=== PATIENT | female | born 1975 | race Caucasian/White ===

== ENCOUNTER 2017-06-14 18:18 | Emergency (ER) | payer OTHER ==
[2017-06-14 18:23] VITALS: BP 129/59; PULSE 82; TEMP 98.2; BMI 28.4
--- NOTE | 2017-06-14 18:23 | PDOC ---
Rapid Medical Evaluation Time Seen by Provider: 06/14/17 18:19 Medical Evaluation: Allergies Allergy/AdvReac Type Severity Reaction Status Date / Time No Known Allergies Allergy Verified 01/07/16 16:22 06/14/17 18:19 I have performed a brief in-person evaluation of this patient. The patient presents with a chief complaint of: R sided neck pain today. Has had similar pain in the past and dx w/ muscular pain by PMD. No recent trauma. Has not tried anything for pain today Pertinent physical exam findings:Unremarkable I have ordered the following: Nothing The patient will proceed to the ED for further evaluation.
--- NOTE | 2017-06-14 19:53 | PDOC ---
History of Present Illness - General History Source: Patient Exam Limitations: No Limitations - History of Present Illness Initial Comments: 06/14/17 20:34 The patient is a 42 year old female with no pertinent past medical history, presents to the emergency department with a complaint of neck pain since 3 this afternoon. The pain came on while the patient was at work. 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 The pain is more right sided on the neck. Patient reports she has had this pain in the past and was previously alleviated with the use of OTC medications. Patient has taken Tylenol today at approximately 4 pm with no relief. The pain is made worse when she lifts her hair. She reports in the past is has been associated with some right arm pain although today denies any radiation of pain. Denies any numbness or tingling in the upper extremities. Denies sensitivity to lights or sounds. 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 Denies fever or chills. Reports mild nausea, however denies vomiting. <Justice Hoover - Last Filed: 06/14/17 20:34> <Lenore Vazquez - Last Filed: 06/14/17 21:10> - General Chief Complaint: Pain Stated Complaint: NECK/BACK PAIN Time Seen by Provider: 06/14/17 18:19 Past History <Justice Hoover - Last Filed: 06/14/17 20:34> - Past Medical History Asthma: Yes COPD: No - Suicide/Smoking/Psychosocial Hx Smoking History: Never smoked Have you smoked in the past 12 months: No Information on smoking cessation initiated: No Hx Alcohol Use: No Drug/Substance Use Hx: No Substance Use Type: None <Lenore Vazquez - Last Filed: 06/14/17 21:10> - Past Medical History Allergies/Adverse Reactions: Allergies Allergy/AdvReac Type Severity Reaction Status Date / Time Penicillins Allergy Verified 06/14/17 18:19 Home Medications: Ambulatory Orders Acetaminophen [Tylenol] 325 mg PO ASDIR 06/14/17 Cyclobenzaprine HCl 7.5 mg PO HS #7 tablet 06/14/17 Ibuprofen 800 mg PO TID #30 tablet 06/14/17 Review of Systems - Review of Systems Able to Perform ROS?: Yes Comments:: 06/14/17 20:34 CONSTITUTIONAL: Absent: fever, no chills, no fatigue GI: Present: Nausea Absent: No vomiting, MUSKULOSKELETAL Present: Neck pain Absent: back pain, No arthralgia NEURO: Absent: Numbness, tingling Is the patient limited [place]serratian proficient: No <Justice Hoover - Last Filed: 06/14/17 20:34> *Physical Exam - Vital Signs Last Vital Signs Temp Pulse Resp BP Pulse Ox 98.2 F 82 18 129/59 100 06/14/17 18:20 06/14/17 18:20 06/14/17 18:20 06/14/17 18:20 06/14/17 18:20 - Physical Exam Comments: 06/14/17 20:34 GENERAL: Well-appearing, well-nourished. No apparent distress. MUSCULOSKELETAL: Tenderness to palpation right side of the neck into the occiput. SKIN: Warm, dry. No rash NEUROLOGICAL: Alert, awake, appropriate. Cranial nerves 2-12 intact. No deficits to light touch and temperature in face, upper extremities and lower extremities. No motor deficits in the in face, upper extremities and lower extremities. Normoreflexic in the upper and lower extremities. Normal speech. Toes are down- going bilaterally. Gait is normal without ataxia. <Justice Hoover - Last Filed: 06/14/17 20:34> - Vital Signs Last Vital Signs Temp Pulse Resp BP Pulse Ox 98.2 F 82 18 129/59 100 06/14/17 18:20 06/14/17 18:20 06/14/17 18:20 06/14/17 18:20 06/14/17 18:20 <Lenore Vazquez - Last Filed: 06/14/17 21:10> *DC/Admit/Observation/Transfer - Attestations Scribe Attestion: 06/14/17 20:35 Documentation prepared by Justice Hoover, acting as medical microbiologist for PINKY Florentino <Justice Hoover - Last Filed: 06/14/17 20:34> <Lenore Vazquez - Last Filed: 06/14/17 21:10> Diagnosis at time of Disposition: Neck pain - Discharge Dispostion Disposition: HOME - Referrals Referrals: STAFF,NOT ON [Primary Care Provider] - - Patient Instructions Printed Discharge Instructions: DI for Neck Pain Additional Instructions: You have neck pain or muscle strain in your neck. Your prescribed ibuprofen. Please take this medication 3 times a day for the next week. Your also prescribed Flexeril. This is a muscle relaxer. Please take this medication before you go to sleep at night. This medication may make you sleepy do not drive a car after taking it. Please do some gentle stretching to help your back and neck. You may use heat on the affected area to help with pain. Please follow -up with your primary care doctor this week. Return to the emergency department if you have worsening neck pain, changes in your vision, arm pain or arm weakness, or any changes in your symptoms. Usted tiene dolor de rodney o tensin muscular en fry rodney. Fry ibuprofeno prescrito Por favor tome jenn medicamento 3 veces al da shaggy la prxima semana. Fry tambin prescrito Flexeril. Jenn es un relajante muscular. Por favor , tome jenn medicamento antes de ir a dormir por la noche. Jenn medicamento puede causarle sueo. No conduzca un automvil despus de tomarlo. Por favor, maico un suave estiramiento para ayudar a fry espalda y rodney. Puede usar calor en el jessenia afectada para aliviar el dolor. Por favor maico un seguimiento con fry mdico de atencin primaria esta semana. Regrese al departamento de emergencias si tiene un empeoramiento en el dolor de rodney, cambios en fry visin, dolor en el brazo o debilidad en el brazo, o cualquier cambio en vania sntomas. Print Language: ICELANDIC - Post Discharge Activity Forms/Work/School Notes: Back to Work
[2017-06-14] MEDS ORDERED: KETOROLAC TROMETHAMINE 60 MG/2 ML VIAL IM ONE (20:28)
[2017-06-14] MEDS ORDERED: CYCLOBENZAPRINE HCL 10 MG TABLET (FP) PO ONE (20:28)
[2017-06-14] MEDS ORDERED: CYCLOBENZAPRINE HCL 10 MG TABLET (FP) ONE (20:33)
[2017-06-14] MEDS ORDERED: KETOROLAC TROMETHAMINE 60 MG/2 ML VIAL ONE (20:33)
== END 2017-06-14 21:29 | disposition home or self-care (01) ==
LOC: JERFT 18:18
PROC: 3E0233Z Introduction of Anti-inflammatory into Muscle, Percutaneous Approach (ICD-10-PCS; principal; 2017-06-14)
DX: M54.2 Cervicalgia (principal); J45.909 Unspecified asthma, uncomplicated
CPT/HCPCS: 99281-25

== ENCOUNTER 2018-08-21 10:01 | Emergency (ER) | payer OTHER ==
[2018-08-21 10:15] VITALS: TEMP 98.7; BMI 27.4
--- NOTE | 2018-08-21 13:16 | PDOC ---
History of Present Illness - General Chief Complaint: Pain Stated Complaint: Pain Time Seen by Provider: 08/21/18 11:33 History Source: Patient - History of Present Illness Occurred: reports: yesterday Severity: reports: moderate Past History - Past Medical History Allergies/Adverse Reactions: Allergies Allergy/AdvReac Type Severity Reaction Status Date / Time Penicillins Allergy Verified 06/14/17 18:19 Home Medications: Ambulatory Orders Acetaminophen [Tylenol] 325 mg PO ASDIR 06/14/17 Cyclobenzaprine HCl 7.5 mg PO HS #7 tablet 06/14/17 Ibuprofen 800 mg PO TID #30 tablet 06/14/17 Ondansetron HCl [Zofran] 4 mg PO Q8H #12 tablet 08/21/18 Asthma: Yes COPD: No - Suicide/Smoking/Psychosocial Hx Smoking History: Never smoked Have you smoked in the past 12 months: No Information on smoking cessation initiated: No Hx Alcohol Use: No Drug/Substance Use Hx: No Substance Use Type: None Review of Systems - Review of Systems Constitutional: Yes: Malaise, Weakness. No: Fever Respiratory: No: Cough, Shortness of Breath Cardiac (ROS): No: Chest Pain ABD/GI: Yes: Diarrhea, Nausea, Vomiting. No: Abdominal cramping : No: Dysuria *Physical Exam - Vital Signs Last Vital Signs Temp Pulse Resp BP Pulse Ox 98.7 F 87 18 123/77 100 08/21/18 10:03 08/21/18 10:03 08/21/18 10:03 08/21/18 10:03 08/21/18 10:03 - Physical Exam Comments: 08/21/18 13:57 appears lethargic General Appearance: Yes: Appropriately Dressed HEENT: positive: Normal Voice Neck: positive: Supple. negative: Lymphadenopathy (R), Lymphadenopathy (L) Respiratory/Chest: positive: Lungs Clear, Normal Breath Sounds. negative: Respiratory Distress Cardiovascular: positive: Regular Rate, S1, S2 Gastrointestinal/Abdominal: positive: Soft. negative: Tender Musculoskeletal: negative: CVA Tenderness Integumentary: positive: Dry, Warm Neurologic: positive: Fully Oriented, Alert, Normal Mood/Affect Moderate Sedation - Procedure Monitoring Vital Signs: Procedure Monitoring Vital Signs Temperature 98.7 F 08/21/18 10:03 Pulse Rate 87 08/21/18 10:03 Respiratory Rate 18 08/21/18 10:03 Blood Pressure 123/77 08/21/18 10:03 O2 Sat by Pulse Oximetry (%) 100 08/21/18 10:03 ED Treatment Course - LABORATORY CBC & Chemistry Diagram: 08/21/18 13:28 08/21/18 13:28 Medical Decision Making - Medical Decision Making 08/21/18 13:16 43 yo F, no sig hx, here w/ n/v/d with body aches and weakness since last night. No BRBPR, abd pain, f/c. No sick contacts/recent travel/unusual food or abx use See exam Possibly gastroenteritis, r/o Flu Stable but urban lethargic, rest of exam unremarkable -pain control -zofran -IVF -labs -reassess 08/21/18 16:00 Labs unremarkable. Patient reports feeling better at this time and able to tolerate po. Will dc with supportive treatment *DC/Admit/Observation/Transfer Diagnosis at time of Disposition: Nausea and vomiting Qualifiers: Vomiting type: unspecified Vomiting Intractability: non-intractable Qualified Code(s): R11.2 - Nausea with vomiting, unspecified Diarrhea Qualifiers: Diarrhea type: unspecified type Qualified Code(s): R19.7 - Diarrhea, unspecified - Discharge Dispostion Disposition: HOME Condition at time of disposition: Improved - Prescriptions Prescriptions: Ondansetron HCl [Zofran] 4 mg PO Q8H #12 tablet - Referrals - Patient Instructions Printed Discharge Instructions: DI for Viral Gastroenteritis -- Adult Additional Instructions: Your symptoms are possibly viral in nature. Please rest, drink plenty of fluids and take zofran as needed for nausea or vomiting. You can also take Tylenol as needed for pain. If symptoms persist and/or worsen, return to the ED - Post Discharge Activity Forms/Work/School Notes: Back to Work
[2018-08-21 13:31] LABS: BASO % 0.3 % (0-2.0); EOS % 0.3 % (0-4.5); HEMATOCRIT 41.6 % (32.4-45.2); HEMOGLOBIN 14.5 GM/dL (10.7-15.3); LYMPH % 4.7 % (8-40); MCH 29.8 pg (25.7-33.7); MCHC 34.9 g/dl (32.0-36.0); MEAN CELL VOLUME 85.5 fl (80-96); MEAN PLT VOLUME 8.3 fl (7.5-11.1); MONO % 3.5 % (3.8-10.2); NEUT % 91.2 % (42.8-82.8); PLATELET COUNT 241 K/MM3 (134-434); RBC 4.87 M/mm3 (3.60-5.2); RDW 13.5 % (11.6-15.6); WHITE BLOOD COUNT 11.5 K/mm3 (4.0-10.0)
[2018-08-21] MEDS ORDERED: SODIUM CHLORIDE 1,000 ML IV STA (13:56)
[2018-08-21] MEDS ORDERED: ONDANSETRON 4 MG/2 ML VIAL IVPUSH ONE (13:57)
[2018-08-21] MEDS ORDERED: KETOROLAC TROMETHAMINE 30 MG/1 ML VIAL IVPUSH ONE (13:57)
[2018-08-21] MEDS ORDERED: KETOROLAC TROMETHAMINE 30 MG/1 ML VIAL ONE (14:02)
[2018-08-21] MEDS ORDERED: ONDANSETRON 4 MG/2 ML VIAL ONE (14:03)
[2018-08-21 14:07] LABS: ALBUMIN 4.5 g/dl (3.4-5.0); ALK PHOS 89 U/L (45-117); ANION GAP 7 MMOL/L (8-16); BILIRUBIN,TOTAL 0.6 mg/dL (0.2-1); BLOOD UREA NITROGEN 17 mg/dL (7-18); CALCIUM 9.1 mg/dL (8.5-10.1); CHLORIDE 105 mmol/L (98-107); CO2 25 mmol/L (21-32); CREATININE 0.8 mg/dL (0.55-1.3); GLUCOSE,RANDOM 93 mg/dL (74-106); LIPASE 142 U/L (73-393); POTASSIUM 4.1 mmol/L (3.5-5.1); SGOT/AST 17 U/L (15-37); SGPT/ALT 19 U/L (13-61); SODIUM 137 mmol/L (136-145); TOT PROT 8.3 g/dl (6.4-8.2)
[2018-08-21 15:10] LABS: PLATELET ESTIMATE NORMAL
[2018-08-21] MEDS ORDERED: ACETAMINOPHEN 1000 MG/100 ML VIAL (NON FORMULARY) IVPB ONE (15:10)
[2018-08-21] MEDS ORDERED: ACETAMINOPHEN INJECTION 100 ML IVPB ONE (15:39)
[2018-08-21 16:32] VITALS: BP 118/80; PULSE 78
== END 2018-08-21 16:15 | disposition home or self-care (01) ==
LOC: JER 10:01
PROC: 3E0337Z Introduction of Electrolytic and Water Balance Substance into Peripheral Vein, Percutaneous Approach (ICD-10-PCS; principal; 2018-08-21)
PROC: 3E033NZ Introduction of Analgesics, Hypnotics, Sedatives into Peripheral Vein, Percutaneous Approach (ICD-10-PCS; 2018-08-21)
PROC: 3E033GC Introduction of Other Therapeutic Substance into Peripheral Vein, Percutaneous Approach (ICD-10-PCS; 2018-08-21)
PROC: 3E0333Z Introduction of Anti-inflammatory into Peripheral Vein, Percutaneous Approach (ICD-10-PCS; 2018-08-21)
DX: R11.2 Nausea with vomiting, unspecified (principal); R19.7 Diarrhea, unspecified; Z87.09 Personal history of other diseases of the respiratory system
CPT/HCPCS: 36415; 80053; 83690; 84703; 85025; 87804; 96361; 96374; 96375; 99284-25; J0131; J7030

== ENCOUNTER 2018-12-15 11:38 | Emergency (ER) | payer OTHER ==
[2018-12-15 11:55] VITALS: BP 121/84; PULSE 85; TEMP 98.6; BMI 27.1
[2018-12-15] MEDS ORDERED: KETOROLAC TROMETHAMINE 60 MG/2 ML VIAL IM ONE (11:55)
--- NOTE | 2018-12-15 11:55 | PDOC ---
Rapid Medical Evaluation Chief Complaint: Pain, Acute Time Seen by Provider: 12/15/18 11:52 Medical Evaluation: Allergies Allergy/AdvReac Type Severity Reaction Status Date / Time Penicillins Allergy Verified 12/15/18 11:52 12/15/18 11:52 I have performed a brief in-person evaluation of this patient. The patient presents with a chief complaint of:LT calf muscle pain s/p stepping wrong down the stairs and twisting lower leg. Report increased pain when stand on left foot Pertinent physical exam findings: TTP over left calf muscle I have ordered the following: Toradol The patient will proceed to the ED for further evaluation. Discharge Disposition - Diagnosis Leg pain, left - Discharge Dispostion Condition at time of disposition: Stable - Referrals - Patient Instructions - Post Discharge Activity
[2018-12-15] MEDS ORDERED: KETOROLAC TROMETHAMINE 60 MG/2 ML VIAL ONE (12:10)
[2018-12-15] MEDS ORDERED: CYCLOBENZAPRINE HCL 10 MG TABLET (FP) PO ONE (12:22)
[2018-12-15] MEDS ORDERED: CYCLOBENZAPRINE HCL 10 MG TABLET (FP) ONE (12:32)
--- NOTE | 2018-12-15 13:25 | PDOC ---
History of Present Illness - General Chief Complaint: Pain, Acute Stated Complaint: LEG PAIN Time Seen by Provider: 12/15/18 11:52 History Source: Patient - History of Present Illness Occurred: reports: just prior to arrival Past History - Past Medical History Allergies/Adverse Reactions: Allergies Allergy/AdvReac Type Severity Reaction Status Date / Time Penicillins Allergy Verified 12/15/18 11:52 Home Medications: Ambulatory Orders Crutch 1 each MC ASDIR #1 each 12/15/18 Cyclobenzaprine HCl [Flexeril -] 10 mg PO TID #9 tablet 12/15/18 Ibuprofen [Motrin -] 800 mg PO Q6H #300 tablet 12/15/18 Anemia: No Asthma: Yes COPD: No - Surgical History Abdominal Surgery: Yes Appendectomy: No Cardiac Surgery: No Cholecystectomy: No Gastric Stapling: No GI Surgery: No Lung Surgery: No Neurologic Surgery: No - Immunization History Immunization Up to Date: Yes - Suicide/Smoking/Psychosocial Hx Smoking History: Never smoked Have you smoked in the past 12 months: No Hx Alcohol Use: No Drug/Substance Use Hx: No Substance Use Type: None Review of Systems - Review of Systems Constitutional: No: Chills, Fever Respiratory: No: Shortness of Breath Cardiac (ROS): No: Chest Pain, Palpitations *Physical Exam - Vital Signs Last Vital Signs Temp Pulse Resp BP Pulse Ox 98.6 F 85 18 121/84 100 12/15/18 11:52 12/15/18 11:52 12/15/18 11:52 12/15/18 11:52 12/15/18 11:52 - Physical Exam General Appearance: Yes: Appropriately Dressed. No: Apparent Distress HEENT: positive: Normal Voice Neck: positive: Supple Respiratory/Chest: negative: Respiratory Distress Extremity: positive: Normal Inspection, Tender (to L calf). negative: Swelling Integumentary: positive: Dry, Warm Neurologic: positive: Fully Oriented, Alert, Normal Mood/Affect ED Treatment Course - RADIOLOGY Radiology Studies Ordered: Category Date Time Status DUPLEX VASCUL US-1 LEG [US] Stat Ultrasound 12/15/18 12:23 Ordered - Medications Given in the ED: ED Medications Discontinued Medications Generic Name Dose Route Start Last Admin Trade Name Freq PRN Reason Stop Dose Admin Cyclobenzaprine HCl 5 mg 12/15/18 12:22 12/15/18 12:34 Flexeril - PO 12/15/18 12:23 5 mg ONCE ONE Administration Ketorolac Tromethamine 60 mg 12/15/18 11:55 12/15/18 12:15 Toradol Injection - IM 12/15/18 11:56 60 mg ONCE ONE Administration Medical Decision Making - Medical Decision Making 12/15/18 13:13 43 yo F, no sig hx, here w/ severe L calf pain while descending steps today, unable to bear weight. No trauma. Had similar pain 2 weeks ago that improved. No CP/SOB or palpitations. No obvious RF for DVT/PE see exam Atraumatic L calf pain Suspect MSK, i.e spasm -dose of toradol/flexeril here -US r/o DVT though no obvious RFs 12/15/18 14:49 US read as neg for DVT. Pain since improved w/ meds. Will dc w/ pain control, crutches. To f/u with PMD as needed *DC/Admit/Observation/Transfer Diagnosis at time of Disposition: Leg pain, left - Discharge Dispostion Disposition: HOME Condition at time of disposition: Stable - Prescriptions Prescriptions: Crutch 1 each ASDIR #1 each Cyclobenzaprine HCl [Flexeril -] 10 mg PO TID #9 tablet Ibuprofen [Motrin -] 800 mg PO Q6H #300 tablet - Referrals Referrals: ON STAFF,NOT [Primary Care Provider] - - Patient Instructions Additional Instructions: Your pain might be muscular Take medications as needed Use crutches for help with walking If pain persists, please follow up with your PMD - Post Discharge Activity Forms/Work/School Notes: Back to Work
== END 2018-12-15 14:49 | disposition home or self-care (01) ==
LOC: JERFT 11:38
PROC: 3E0233Z Introduction of Anti-inflammatory into Muscle, Percutaneous Approach (ICD-10-PCS; principal; 2018-12-15)
DX: M79.605 Pain in left leg (principal); W10.9XXA Fall (on) (from) unspecified stairs and steps, initial encounter; Y93.89 Activity, other specified; Y92.89 Other specified places as the place of occurrence of the external cause
CPT/HCPCS: 93971-TC; 96372; 99281-25